=== PATIENT | female | born 1965 | race Caucasian/White ===

== ENCOUNTER 2018-11-04 07:39 | Day surgery (SDC) | payer BC ==
[~2018-11-04 07:39] MED LIST: Lactated Ringers 1,000 ML IV SCH
[2018-11-04] MEDS ORDERED: Lidocaine 2% 5 ML SDV ONE (08:18)
[2018-11-04] MEDS ORDERED: fentaNYL 100 MCG/2 ML SDV ONE (08:18)
[2018-11-04] MEDS ORDERED: Propofol 200 MG/20 ML SDV ONE (08:18)
[2018-11-04] MEDS ORDERED: Midazolam 1 MG/ML 2 ML SDV ONE (08:18)
--- NOTE | 2018-11-04 08:19 | PCM.PREANE ---
Preanesthetic Assessment - Anesthesia/Transfusion/Family Hx Anesthesia History: Prior Anesthesia Without Reaction Family History of Anesthesia Reaction: No Transfusion History: No Prior Transfusion(s) - Review of Systems General: No Symptoms Pulmonary: No Symptoms Cardiovascular: No Symptoms Gastrointestinal: Nausea Neurological: No Symptoms Other: Reports: None - Physical Assessment Vital Signs: Last Vital Signs Temp 98.6 F 11/04/18 08:08 Pulse 96 11/04/18 08:08 Resp 16 11/04/18 08:08 BP 138/63 11/04/18 08:08 Pulse Ox 94 L 11/04/18 08:08 Height: 5 ft 6 in Weight: 92.533 kg ASA Class: 2 Mental Status: Alert & Oriented x3 Airway Class: Mallampati = 3 Dentition: Reports: Normal Dentition ROM/Head Extension: Full Lungs: Clear to Auscultation, Normal Respiratory Effort Cardiovascular: Regular Rate, Regular Rhythm - Lab Values: Laboratory Last Values WBC 9.89 K/uL (4.0-11.0) 11/04/18 07:59 RBC 4.90 M/uL (4.30-5.90) 11/04/18 07:59 Hgb 15.3 g/dL (12.0-16.0) 11/04/18 07:59 Hct 44.8 % (36.0-46.0) 11/04/18 07:59 MCV 91.4 fL (80.0-98.0) 11/04/18 07:59 MCH 31.2 pg (27.0-32.0) 11/04/18 07:59 MCHC 34.2 g/dL (31.0-37.0) 11/04/18 07:59 RDW Std Deviation 42.4 fl (28.0-62.0) 11/04/18 07:59 RDW Coeff of Nicolás 13 % (11.0-15.0) 11/04/18 07:59 Plt Count 318 K/uL (150-400) 11/04/18 07:59 MPV 10.00 fL (7.40-12.00) 11/04/18 07:59 Nucleated RBC % 0.0 /100WBC 11/04/18 07:59 Nucleated RBCs # 0 K/uL 11/04/18 07:59 - Allergies Allergies/Adverse Reactions: Allergies Allergy/AdvReac Type Severity Reaction Status Date / Time No Known Allergies Allergy Verified 10/30/18 12:31 - Blood Blood Available: No - Anesthesia Plan Pre-Op Medication Ordered: None - Acknowledgements Anesthesia Type Planned: General Anesthesia Pt an Appropriate Candidate for the Planned Anesthesia: Yes Alternatives and Risks of Anesthesia Discussed w Pt/Guardian: Yes Pt/Guardian Understands and Agrees with Anesthesia Plan: Yes Additional Comments: PMH: hx of migraines, current nausea PLAN: ga lma with antiemetics and toradol and iv tylenol PreAnesthesia Questionnaire HEENT History: Reports: Cataract, Other (See Below) Other HEENT History: wears glasses/contacts Respiratory History: Reports: Other (See Below) Other Respiratory History: she "snores" 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: , Spontaneous Musculoskeletal History: Reports: Fracture Other Musculoskeletal History: right arm Neurological History: Reports: Migraines Endocrine/Metabolic History: Reports: Obesity/BMI 30+ - Past Surgical History Female Surgical History: Reports: Section, D&C, Endometrial Ablation , Other (See Below) Other Female Surgeries/Procedures: Laparoscopy Musculoskeletal Surgical History: Reports: ORIF Other Musculoskeletal Surgeries/Procedures:: ORIF right arm as a child- denies hardware - SUBSTANCE USE Smoking Status *Q: Never Smoker Recreational Drug Use History: No - HOME MEDS Home Medications: Home Meds Acetaminophen/Caffeine [Excedrin Tension Headache Cplt] 2 tab PO Q6H PRN [History] - CURRENT (IN HOUSE) MEDS Current Meds: Current Medications Lactated Ringer's (Ringers, Lactated) 1,000 mls @ 125 mls/hr IV ASDIRECTED [facility] Last Admin: 11/04/18 08:00 Dose: 125 mls/hr
[2018-11-04] MEDS ORDERED: Ondansetron 4 MG/2 ML SDV ONE (09:21)
[2018-11-04] MEDS ORDERED: Dexamethasone 4 MG/ML 5 ML MDV ONE (09:21)
[2018-11-04] MEDS ORDERED: Naloxone 0.4 MG/ML Syringe IVPUSH PRN (09:27)
[2018-11-04] MEDS ORDERED: fentaNYL 100 MCG/2 ML SDV IVPUSH PRN (09:27)
[2018-11-04] MEDS ORDERED: EPINEPHrine 1:10,000 1 MG/10 ML Syringe IVPUSH PRN (09:27)
[2018-11-04] MEDS ORDERED: Atropine 0.1 MG/ML 10 ML Syringe IVPUSH PRN ×2 (09:27)
[2018-11-04] MEDS ORDERED: Albuterol 0.083% 2.5 MG/3 ML Neb Soln NEB PRN (09:27)
[2018-11-04] MEDS ORDERED: 50% Dextrose in Water 50 ML Syringe IVPUSH PRN (09:27)
[2018-11-04] MEDS ORDERED: Ketorolac 30 MG/ML SDV ONE (09:39)
[2018-11-04] MEDS ORDERED: Metoclopramide 10 MG/2 ML SDV ONE (09:40)
--- NOTE | 2018-11-04 10:03 | PCM.OPNOTE ---
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
--- NOTE | 2018-11-04 10:55 | OR ---
SURGEON: Sonam Chong MD DATE OF PROCEDURE: 11/04/2018 PREOPERATIVE DIAGNOSIS: Postmenopausal bleeding. POSTOPERATIVE DIAGNOSIS: Postmenopausal bleeding. PROCEDURE: Operative hysteroscopy with directed biopsies under ultrasound guidance, sharp curettage. ANESTHESIA: LMA by Dr. Aleman. YARD ASSISTANT: Dr. Jolie Martins. COMPLICATIONS: None. ESTIMATED BLOOD LOSS: 5 mL. URINE OUTPUT: Bladder drained prior to procedure. Hysteroscopic fluid deficit 75 mL normal saline. SPECIMEN: Directed endometrial biopsy, lower uterine segment, endometrial curettings. 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 Fluffy endometrium in the posterior lower uterine segment. PROCEDURE IN DETAIL: The patient was taken to the operating room where LMA was administered without difficulty. She was placed in dorsal lithotomy position with legs in Yellofins stirrups, and the patient was prepared and draped in normal sterile fashion. A speculum was inserted into the vagina. An Allis clamp was used to grasp the anterior lip of the cervix. The cervix was carefully dilated with Hegar dilators with care not to perforate the uterus; however, was unable to be sounded. A 3 mm 30 degree hysteroscope was introduced under direct visualization and was advanced to the fundus using countertraction on the cervix. The uterus was distended with normal saline. As mentioned, findings were noted. It was noted that the fundus was reached with the hysteroscope based on ultrasound visualization. The biopsy forceps were introduced into the hysteroscope and used to obtain a direct biopsy of the posterior lower uterine segment. The hysteroscope was then withdrawn. A small curette was introduced and used to obtain endometrial curettings. The Allis was removed from the cervix. Good hemostasis was noted. The patient tolerated the procedure well. The instrument and sponge counts were correct x2. The patient was awakened and taken to the recovery room in stable condition. [id number] / MODL /[id number] JENN
--- NOTE | 2018-11-04 11:06 | PCM.POSTAN ---
POST ANESTHESIA ASSESSMENT - MENTAL STATUS Mental Status: Alert, Oriented - VITAL SIGNS Vital Signs: Last Vital Signs Temp 97.7 F 11/04/18 10:45 Pulse 80 11/04/18 10:45 Resp 16 11/04/18 10:45 BP 115/78 11/04/18 10:45 Pulse Ox 95 11/04/18 10:45 - RESPIRATORY Respiratory Status: Respiratory Rate WNL, Airway Patent, O2 Saturation Stable - CARDIOVASCULAR CV Status: Pulse Rate WNL, Blood Pressure Stable - GASTROINTESTINAL GI Status: No Symptoms - POST OP HYDRATION Hydration Status: Adequate & Stable
--- NOTE | 2018-11-04 11:44 | PCM48HPAN ---
Post Anesthesia Note - EVALUATION WITHIN 48HRS OF ANESTHETIC Vital Signs in Normal Range: Yes Patient Participated in Evaluation: Yes Respiratory Function Stable: Yes Airway Patent: Yes Cardiovascular Function Stable: Yes Hydration Status Stable: Yes Pain Control Satisfactory: Yes Nausea and Vomiting Control Satisfactory: Yes Mental Status Recovered: Yes Vital Signs: Last Vital Signs Temp 97.7 F 11/04/18 10:45 Pulse 80 11/04/18 10:45 Resp 16 11/04/18 10:45 BP 115/78 11/04/18 10:45 Pulse Ox 95 11/04/18 10:45 - COMMENTS/OBSERVATIONS Free Text/Narrative:: Pt's nausea is still slightly there, but pt has been able to tolerate fluids with no problem and states it is not a problem. Pain she describes as "slightly crampy", but states it's not enough to be a problem.
== END 2018-11-04 11:45 | disposition home or self-care (01) ==
LOC: MW.SDS 07:39
PROVIDERS: ATTEND Obstetrics & Gynecology
DX: N95.0 Postmenopausal bleeding (principal); N85.6 Intrauterine synechiae; G43.909 Migraine, unspecified, not intractable, without status migrainosus
CPT/HCPCS: 36415; 58558; 84703; 85027; J0131; J1100; J1885; J2001; J2250; J2405; J2704; J2765; J3010; J7120; 00952; 88305